=== PATIENT | female | born 1975 | race Caucasian/White ===

== ENCOUNTER 2022-02-25 23:15 | Observation (INO) | payer OTHER ==
[~2022-02-25] VITALS: Ht 172.7 cm; Wt 66.6 kg
[2022-02-26] MEDS ORDERED: BUSP5 PO (03:35)
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
[2022-02-26 04:47] LABS: BASOPHILS ABSOLUTE AUTO 0.06 K/mm3 (0.00-0.23); BASOPHILS PERCENT AUTO 1 % (0-2); EOSINOPHILS ABSOLUTE AUTO 0.36 K/mm3 (0.00-0.68); EOSINOPHILS PERCENT AUTO 4 % (0-6); Hematocrit 43.6 % (33.0-51.0); Hemoglobin 14.1 g/dL (11.5-16.0); IMMATURE GRAN ABSOLUTE AUTO 0.01 K/mm3 (0.00-0.10); IMMATURE GRAN PERCENT AUTO 0 % (0-1); LYMPHOCYTES ABSOLUTE AUTO 2.09 K/mm3 (0.84-5.20); LYMPHOCYTES PERCENT AUTO 25 % (21-46); MONOCYTES ABSOLUTE AUTO 0.66 K/mm3 (0.16-1.47); MONOCYTES PERCENT AUTO 8 % (4-13); Mean Corpuscular HGB 29.2 pg (26.0-34.0); Mean Corpuscular HGB Conc 32.3 g/dL (31.5-36.5); Mean Corpuscular Volume 90 fL (80-100); Mean Platelet Volume 11.4 fL (9.1-12.4); NEUTROPHILS ABSOLUTE AUTO 5.16 K/mm3 (1.96-9.15); NEUTROPHILS PERCENT AUTO 62 % (41-73); Platelet Count 197 K/mm3 (150-400); RDW Coefficient Variation 12.6 % (11.7-14.2); Red Blood Cell Count 4.83 M/mm3 (3.80-5.20); White Blood Cell Count 8.34 K/mm3 (4.00-11.30)
[2022-02-26 05:11] LABS: Bun/Creatinine Ratio 17.1 (12.0-20.0); Calcium, Blood 9.1 mg/dL (8.5-10.1); Creatinine, Blood 0.7 mg/dL (0.40-1.00); Potassium, Blood 3.8 mmol/L (3.5-5.5)
[2022-02-26 05:36] LABS: SARS-Cov-2 (COVID-19) PCR, MMC NEGATIVE (NEGATIVE)
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
[2022-02-26 09:18] LABS: U Amphetamine Screen DETECTED; U Barbituate Screen Not Detected; U Benzodiazapine Screen DETECTED; U Buprenorphine Screen Not Detected; U Cannabinoids Screen Not Detected; U Cocaine Screen Not Detected; U Methadone Screen Not Detected; U Methamphetamine Screen DETECTED; U Opiates Screen Not Detected; U Oxycodone Screen Not Detected; U Phencyclidine Screen Not Detected; U Propoxyphene Screen Not Detected
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
--- NOTE | 2022-02-27 05:17 | NUR ---
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 PT AAOX4 AND PLEASANT. INDEPENDENT IN ROOM. L ARM WOUND DRESSED AND ARM IN SPLINT/MICHELLE WRAP. DRESSING CDI. PT STATES ARM IS ALWAYS TENDER BUT HAS NOT NEEDED ANY PAIN MEDICATIONS THUS FAR. PT HAS SLEPT WELL MOST OF THE NIGHT. PT DENIES N/T TO L HAND. VSS, WILL CONTINUE TO MONITOR.
[2022-02-27] MEDS ORDERED: BUSPIRONE HCL7.5 M1 PO (11:42)
[2022-02-27] MEDS ORDERED: VISBIOME 112.51 EACH PO (11:43)
[2022-02-27] MEDS ORDERED: Acetaminophen325 M1 PO (11:43)
--- NOTE | 2022-02-27 12:16 | NUR ---
DISCHARGE VSS ON RA. GAUZE IN PLACE OVER WOUND AND SPLINT IN PLACE TO LEFT ARM/ELBOW. PAIN REPORTED TO BE VERY MINIMIAL AND TOLERABLE. EATING, DRINKING, & VOIDING WELL. DISCUSSED DISCHARGE INSTRUCTIONS, SENT WITH PATIENT. PATIENT DECLINED W/C, WALKED OUT WITH FAMILY MEMBERS.
== END 2022-02-27 12:10 | disposition home or self-care (01) ==
LOC: ER 23:15 → SURS 23:16
PROVIDERS: ADMIT Family Medicine
DX: S52.131 Displaced fracture of neck of right radius (principal); W34.09XA Accidental discharge from other specified firearms, initial encounter; F15.10 Other stimulant abuse, uncomplicated; F41.9 Anxiety disorder, unspecified; F17.210 Nicotine dependence, cigarettes, uncomplicated; Z20.822 Contact with and (suspected) exposure to COVID-19
CPT/HCPCS: 36415; 73080; 80048; 85025; 90471; 90714; 96365; 96374; 96375; 96376; 99285-25; A9270; G0378; J0690; J1885; J2060; J2405; J3010; J7030; U0004

== ENCOUNTER → 2022-12-26 | Outpatient (CLI) | payer OTHER ==
[~2022-12-26] MED LIST: Acetaminophen325 M1 PO; BUSP5 PO; BUSPIRONE HCL7.5 M1 PO; Mupirocin22 GM TOP; VISBIOME 112.51 EACH PO
== END | disposition home or self-care (01) ==
LOC: LAB SHORT 16:59 → LAB 16:59
DX: R39.15 Urgency of urination (principal)
CPT/HCPCS: 87086

== ENCOUNTER 2024-03-06 04:48 | Emergency (ER) | payer OTHER ==
[~2024-03-06] VITALS: Ht 172.7 cm; Wt 65.8 kg
[2024-03-06 04:59] VITALS: BP 124/86
[2024-03-06] MEDS ORDERED: ESCI10 PO (05:02)
== END 2024-03-06 05:16 | disposition home or self-care (01) ==
LOC: ER 04:48
DX: S91.311A Laceration without foreign body, right foot, initial encounter (principal); F17.200 Nicotine dependence, unspecified, uncomplicated; W20.8XXA Other cause of strike by thrown, projected or falling object, initial encounter; Z79.899 Other long term (current) drug therapy; Z88.5 Allergy status to narcotic agent
CPT/HCPCS: 12001; 73630; 99283-25

== ENCOUNTER 2025-01-26 22:16 | Emergency (ER) | payer OTHER ==
[~2025-01-26] VITALS: Ht 162.6 cm; Wt 59.0 kg
[~2025-01-26 22:16] MED LIST changes: +ESCI10 PO
[2025-01-26] MEDS ORDERED: Dexamethasone Sod Phos 10 MG/ML 1ML VIAL PO ONE (22:45)
[2025-01-26] MEDS ORDERED: Albuterol 2.5 MG/3 ML VIAL INH SCH (22:45)
[2025-01-26 23:26] LABS: Influenza A, PCR NEGATIVE (NEGATIVE); Influenza B, PCR NEGATIVE (NEGATIVE); Resp Syncytial Virus, PCR NEGATIVE (NEGATIVE); SARS-Cov-2 (COVID-19) PCR, MMC NEGATIVE (NEGATIVE)
[2025-01-26] MEDS ORDERED: BENZ100A PO (23:35)
[2025-01-26] MEDS ORDERED: ALBU90OI INH (23:35)
[2025-01-26] MEDS ORDERED: PRED20 PO (23:35)
[2025-01-27 00:40] VITALS: BP 148/76
== END 2025-01-27 00:41 | disposition home or self-care (01) ==
LOC: ER 22:16
PROVIDERS: Emergency Medicine
DX: J06.9 Acute upper respiratory infection, unspecified (principal); F17.200 Nicotine dependence, unspecified, uncomplicated; Z79.899 Other long term (current) drug therapy; Z88.5 Allergy status to narcotic agent; Z88.8 Allergy status to other drugs, medicaments and biological substances
CPT/HCPCS: 0241U; 71046; 93005; 93010; 99285-25; J1100